=== PATIENT | male | born 1990 | race African-American/Black ===

== ENCOUNTER 2016-11-21 01:58 | Emergency (ER) | payer OTHER ==
[~2016-11-21] VITALS: Ht 185.4 cm; Wt 65.8 kg
== END 2016-11-21 06:17 | disposition home or self-care (01) ==
LOC: CED 01:58
DX: S39.012A Strain of muscle, fascia and tendon of lower back, initial encounter (principal); L03.031 Cellulitis of right toe; X50.1XXA Overexertion from prolonged static or awkward postures, initial encounter
CPT/HCPCS: 10060; 99283